=== PATIENT | male | born 1960 | race Caucasian/White ===

== ENCOUNTER 2018-04-07 22:05 | Emergency (ER) | payer BC ==
--- NOTE | 2018-04-07 22:11 | PDOC ---
History of Present Illness - History of Present Illness Initial Comments: 04/07/18 23:06 The patient is a 57 year old male, who presents to the emergency department via walk-in complaining of fever, dysuria and frequency for approx 5 hours. The patient states around 6 pm he experienced a sudden onset of right groin pain while walking which lasted for less than a minute before resolving on its own. He denies any recent injuries or trauma. The patient states after experiencing the right groin pain he noted he had a subjective fever and began to experience the dysuria and frequency. Denies any nausea, vomiting, diarrhea or constipation. The patient denies chest pain, shortness of breath, headache and dizziness. PAST MEDICAL HISTORY: Diabetes mellitus, hyperlipidemia. PAST SURGICAL HISTORY: no significant history FAMILY HISTORY: no pertinent history SOCIAL HISTORY: Pt lives with family and is employed. MEDICATIONS: reviewed ALLERGIES: As per nursing notes ROS General: +Fever. No chills, no weakness, no weight loss HEENT: No change in vision. No sore throat,. No ear pain CardioVascular: No chest pain or shortness of breath Respiratory:No cough, or wheezing. Gastrointestinal: no nausea, vomiting, diarrhea or constipation, No rectal bleeding Genitourinary: +Frequency. +Dysuria. No hematuria. Musculoskeletal: +Right groin pain (resolved). No joint or muscle pain or swelling Neurologic: No headache, vertigo, dizziness or loss of consciousness Psychiatric: nor depression Skin: +Rash on penis. Endocrine: no increased thirst or abnormal weight change Allergic: no skin or latex allergy All other systems reviewed and normal Physical Exam: GENERAL: The patient is awake, alert, and fully oriented, in no acute distress. HEAD: Normal with no signs of trauma. EYES: Pupils equal, round and reactive to light, extraocular movements intact, sclera anicteric, conjunctiva clear. ABDOMEN: +Mild tenderness to palpation suprapubic area. No guarding or rebound. : Testicles distended bilaterally. Normal cremaster reflex. RECTAL: +Prostate is tender to palpation but otherwise normal exam. EXTREMITIES: Normal range of motion, no edema. NEUROLOGICAL: Normal speech, normal gait. PSYCH: Normal mood, normal affect. SKIN: Warm, Dry, normal turgor. <Gaudencio Aguirre - Last Filed: 04/07/18 23:25> - General History Source: Patient Exam Limitations: No Limitations - History of Present Illness Initial Comments: 04/07/18 23:26 A portion of this note was documented by scribe services under my direction. I have reviewed the details of the note, within reason, and agree with the documentation. The case summary and management plan written by me. Assessment and plan: This is a 57-year-old male who comes in complaining of some urinary frequency and dysuria along with some fevers chills and a supra pubic pain. Patient was noted to have a low-grade fever of 100.6 here in the ED. On my exam patient did have tenderness of his prostate and some white cells and bacteria in his urine. Patient was started on Cipro and Pyridium for prostatitis In addition to that patient also had a rash to his penile area with some excoriation. Patient was referred to a urologist for further evaluation of his rash and follow-up for his prostatitis.. Patient discharged home. <Danisha Calvo I - Last Filed: 04/07/18 23:28> - General Chief Complaint: Urinary Problem Stated Complaint: FEVER, URINARY FREQUENCY Time Seen by Provider: 04/07/18 22:10 Past History <Gaudencio Aguirre - Last Filed: 04/07/18 23:25> <Danisha Calvo I - Last Filed: 04/07/18 23:28> - Past Medical History Allergies/Adverse Reactions: Allergies Allergy/AdvReac Type Severity Reaction Status Date / Time Penicillins Allergy Verified 04/07/18 22:06 Home Medications: Ambulatory Orders Allopurinol 300 mg PO DAILY 04/07/18 Ascorbic Acid [Vitamin C] 100 mg PO DAILY 04/07/18 Atorvastatin Ca [Lipitor] 10 mg PO HS 04/07/18 Ciprofloxacin [Cipro (Restricted To Id)] 500 mg PO Q12H #84 tablet 04/07/18 Losartan Potassium 100 mg PO DAILY 04/07/18 Metformin HCl [Metformin HCl ER] 1,000 mg PO BID 04/07/18 [place]-3 Fatty Acids [[place]-3] 1,000 mg PO DAILY 04/07/18 Phenazopyridine HCl [Pyridium] 200 mg PO TID #12 tablet 04/07/18 Ubidecarenone [Co Q-10] 100 mg PO DAILY 04/07/18 *Physical Exam - Vital Signs Last Vital Signs Temp Pulse Resp BP Pulse Ox 100.6 F H 126 H 18 177/103 98 04/07/18 22:08 04/07/18 22:08 04/07/18 22:08 04/07/18 22:08 04/07/18 22:08 <Gaudencio Aguirre - Last Filed: 04/07/18 23:25> ED Treatment Course - ADDITIONAL ORDERS Additional order review: Laboratory Results 04/07/18 22:13 Urine Color Yellow Urine Appearance Sl cloudy Urine pH 6.0 Ur Specific [place] 1.020 Urine Protein Negative Urine Glucose (UA) Trace Urine Ketones Trace Urine Blood Trace-intact H Urine Nitrite Negative Urine Bilirubin Negative Urine Urobilinogen 0.2 Ur Leukocyte Esterase 1+ H - Medications Given in the ED: ED Medications Discontinued Medications Generic Name Dose Route Start Last Admin Trade Name Alen PRN Reason Stop Dose Admin Acetaminophen 1,000 mg 04/07/18 22:12 04/07/18 22:14 Tylenol - PO 04/07/18 22:13 1,000 mg ONCE ONE Administration <Gaudencio Aguirre - Last Filed: 04/07/18 23:25> *DC/Admit/Observation/Transfer - Attestations Scribe Attestion: 04/07/18 23:07 Documentation prepared by Gaudencio Aguirre, acting as medical/surgery registered nurse for Danisha Calvo MD. <Gaudencio Aguirre - Last Filed: 04/07/18 23:25> - Discharge Dispostion Decision to Admit order: No <Danisha Calvo I - Last Filed: 04/07/18 23:28> Diagnosis at time of Disposition: Acute bacterial prostatitis - Discharge Dispostion Disposition: HOME Condition at time of disposition: Stable - Prescriptions Prescriptions: Ciprofloxacin [Cipro (Restricted To Id)] 500 mg PO Q12H #84 tablet Phenazopyridine HCl [Pyridium] 200 mg PO TID #12 tablet - Referrals Referrals: Joseph Logan MD [Staff Physician] - - Patient Instructions Additional Instructions: Take Cipro 1 tablet twice a day for 6 weeks for the prostatitis. I have also give you a prescription for Pyridium for the frequency and burning on urination take that one tablet 3 times a day. Follow-up with a urologist if you need a urologist call Dr. Hughes. Return to the emergency department immediately with ANY new, persistent or worsening symptoms. Continue any medications as previously prescribed by your physician. You should follow up with your primary doctor as soon as possible regarding today's emergency department visit. . Please make sure your doctor reviews the results of your emergency evaluation. Thank you for coming to the Emergency Department today for your care. It was a pleasure to see you today. Please note that your evaluation is INCOMPLETE until you follow-up with your doctor. is
[2018-04-07 22:12] VITALS: BMI 40.4
[2018-04-07] MEDS ORDERED: ACETAMINOPHEN 500 MG TABLET (FP) PO ONE (22:12)
[2018-04-07] MEDS ORDERED: ACETAMINOPHEN 500 MG TABLET (FP) ONE (22:13)
[2018-04-07 22:36] LABS: URINE BILIRUBIN Negative (NEGATIVE); URINE COLOR Yellow; URINE GLUCOSE (UA) Trace (NEGATIVE); URINE KETONE Trace (NEGATIVE); URINE NITRITE Negative (NEGATIVE); URINE PROTEIN Negative (NEGATIVE); URINE UROBILINOGEN 0.2 (0.2-1.0)
[2018-04-07 22:38] LABS: URINE APPEARANCE SL CLOUDY; URINE LEUK ESTERASE 1+ (NEGATIVE)
[2018-04-07] MEDS ORDERED: PHENAZOPYRIDINE HCL 100 MG TABLET (FP) ONE (22:59)
[2018-04-07] MEDS ORDERED: CIPROFLOXACIN 250 MG TABLET (RESTRICTED TO ID) PO ONE (22:59)
[2018-04-07 23:08] VITALS: BP 152/111; PULSE 112; TEMP 99.8
[2018-04-07 23:10] LABS: AMORP URATES FEW /hpf (NONE SEEN); EPI CELLS FEW /HPF; URINE BACTERIA FEW /hpf (NEGATIVE); URINE WBC 20-40 (0-2)
[2018-04-07] MEDS ORDERED: CIPROFLOXACIN 500 MG TABLET (RESTRICTED TO ID) PO ONE (23:12)
[2018-04-07] MEDS ORDERED: PHENAZOPYRIDINE HCL 100 MG TABLET (FP) PO ONE (23:12)
== END 2018-04-07 23:14 | disposition home or self-care (01) ==
LOC: FER 22:05
DX: N41.0 Acute prostatitis (principal)
CPT/HCPCS: 81003; 81015; 87086; 87186; 99281-25